=== PATIENT | female | born 1985 | race Caucasian/White ===

== ENCOUNTER 2016-07-02 21:48 | Inpatient (IN) ==
[2016-07-02] MEDS ORDERED: ONDANSETRON 4 MG/2 ML VIAL IV PRN (23:14)
[2016-07-02] MEDS: LACTATED RINGERS 1,000 ML IV SCH (23:25)
[2016-07-03 00:09] LABS: Basophils % 0.3 % (0.0-0.8); Eosinophils # 0.1 10*3/uL (0.0-0.87); Eosinophils % 0.9 % (0.00-10.9); Hematocrit 33.9 VOL% (35.7-47.0); Hemoglobin 11.4 GM/DL (12.0-16.0); Immature Granulocytes % 0.4 %; Immature Granulocytes Absolute 0.03 #; Lymphocytes # 2.5 10*3/uL (1.4-4.0); Lymphocytes % 31.9 % (21.3-54.2); Mean Corpuscular HGB Conc 33.6 GM/DL (32-36); Mean Corpuscular Hemoglobin 29 PG (27-34); Mean Corpuscular Volume 85.4 FL (87-102); Mean Platelet Volume 10.7 FL (9.6-12.0); Monocytes # 0.6 10*3/uL (0.11-0.8); Monocytes % 7.4 % (1.7-12.7); Neutrophils # 4.6 10*3/uL (1.4-7.4); Neutrophils % 59.1 % (38.7-73.9); Platelet Count 266 T/CUMM (130-400); Red Blood Count 3.97 MC/CUMM (3.8-5.5); Red Cell Distribution Width 13.6 % (9.3-17.3); White Blood Count 7.8 T/CUMM (4-12)
[2016-07-03] MEDS: LACTATED RINGERS 1,000 ML IV SCH (02:56)
[2016-07-03] MEDS ORDERED: OXYTOCIN/LR 20 UNIT/1,000 ML BAG IV SCH (06:00)
[2016-07-03] MEDS ORDERED: ePHEDrine 50 MG/ML AMP IV PRN (07:14)
[2016-07-03] MEDS ORDERED: CITRIC ACID/SODIUM CITRATE 30 ML UDCUP PO ONE (07:14)
[2016-07-03] MEDS ORDERED: LACTATED RINGERS 1,000 ML IV ONE (07:14)
[2016-07-03] MEDS ORDERED: FAMOTIDINE 20 MG/2 ML VIAL IV ONE (07:14)
[2016-07-03] MEDS ORDERED: fentaNYL 2 MCG/ROPIV 0.2% EPID 150 ML EPIDURAL SCH (07:15)
[2016-07-03] MEDS ORDERED: hydrOXYzine HCL 25 MG/1 ML VIAL IM PRN (07:15)
[2016-07-03] MEDS ORDERED: PROMETHAZINE 25 MG/1 ML VIAL IM ONE (07:15)
[2016-07-03] MEDS ORDERED: diphenhydrAMINE 50 MG/1 ML VIAL IV PRN ×2 (07:15)
[2016-07-03] MEDS ORDERED: ePHEDrine 50 MG/ML AMP ONE (07:28)
[2016-07-03 09:47] LABS: Apearance,Urine CLEAR (Clear); Bilirubin,Urine Negative (Negative); Blood, Urine Negative (Negative); Glucose,Urine (UA) Negative (Negative); Ketones,Urine Negative (Negative); Nitrite,Urine Negative (Negative); Protein,Urine Negative; RBC,Urine <1 /HPF (0-4); Squamous Epithelial Cell,Urine Occasional /HPF (0-10); Urine Color Straw (Yellow); Urine Specific Gravity 1.003 (1.001-1.035); Urine Urobilinogen < 2.0 EU/DL (0.2-1.0); WBC,Urine <1 /HPF (0-6)
--- NOTE | 2016-07-03 09:53 | OB/GYN History & Physical ---
History of Present Illness Chief complaint: In for complaints of labor History of present illness: Ms. Robles is a 31 year old female who is a 4 para 1 living 1 AMANDA 2016 for an estimated gestational age of 38 weeks and 3 days. The patient presented to the labor department with complaints of painful regular uterine contractions. The risk and benefits were thoroughly discussed with this patient and significant other, plan of care was discussed with Dr. Wallace and all parties are not plan. The patient received her care at the [facility] and she received routine care, her course was uneventful. The patient had a previous vaginal delivery of a liveborn that weighed 6 pounds and 11 ounces and she reported no complications with . labs: She is a negative she did receive evy antonio RhoGam, RPR is nonreactive, hepatitis B is negative, HIV is negative, rubella is immune , GBS culture is negative, review of systems is negative. Home Medications Medication Instructions Recorded Confirmed Type Pnv No.95/Ferrous Fum/Folic AC 1 each PO DAILY 05/26/14 07/03/16 History [ Tablet] Ferrous Sulfate Tab [Feosol 325 mg PO BID #60 tablet 08/11/15 07/03/16 Rx Original Tab] Allergies Allergy/AdvReac Type Severity Reaction Status Date / Time azithromycin Allergy RASH Verified 05/26/14 10:25 [From Zithromax Z-Morro] sulfamethoxazole Allergy RASH Verified 05/26/14 10:25 [From Bactrim] trimethoprim [From Bactrim] Allergy RASH Verified 05/26/14 10:25 sevela Allergy RASH Uncoded 05/26/14 10:26 12 point system: reviewed and no additional remarkable complaints except as stated Medical,Surgical,& Family Hx - Medical History Medical History: noncontributory Neurology: No history of: Seizures HEENT: History of: Eye Problem Genitourinary: History of: Bladder Problem (LEAKAGE) Musculoskeletal: History of: Musculoskeletal Problems (surgery on finger) Hematology: No history of: Blood Transfusion Reaction Reproductive: History of: Complication (MISSED TWICE) No history of: Ectopic Other: History of: Skin Problems (BENIGN MOLE REMOVED WHEN 10 YEARS OLD) No history of: Anesthesia Reactions, MRSA - Surgical History HEENT Surgeries: Surgical HX of: Eye Surgery (LASIK) Reproductive Surgeries: Surgical HX of;: Dilation and Curettage (x2), Genitourinary Surgery (BLADDER SLING 2006) Patient denies;: Section - Family History Family History: Reports;: Family Diabetes (DAD) - Social History Smoking Status: Never smoker Frequency of Alcohol Use: None Type of Drug Use: None Marital Status: Lives With:: Spouse Functional capacity: independent ambulation 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 - Constitutional Vitals: Vital Signs Temp 07/03/16 03:56 96.8 F L 07/03/16 00:00 97.6 F General appearance: mild distress - Antepartum / Post Antepartum Exam Cervix -Dilatation: 6 cm Effacement: 80% Station: -1 Rupture: Intact Presentation: Vertex Heart Rate: 130s-140s Breast: bilateral: normal Abdomen obstetrics: Present: bowel sounds normal Vagina: Present: normal moisture Uterus exam: Present: enlarged Anus/Rectum: Present: normal perianal skin - Head Head exam: Present: normocephalic - Respiratory Respiratory exam: Present: clear to auscultation bilaterally - Cardiovascular Cardiovascular exam: Present: regular rate and rhythm - GI/Abdominal GI/Abdominal exam: Present: normal bowel sounds, soft - Extremities Exam Extremities exam: Present: normal inspection - Back Exam Back exam: Present: normal inspection - Neurological Exam Neurological exam: Present: alert, oriented X3 - Psychiatric Psychiatric exam: Present: normal affect, normal mood - Skin Skin exam: Present: normal color, warm Assessment and Plan (1) Active labor at term Status: Acute Assessment and plan: Admit IV fluids IV Pitocin per protocol Artificial rupture membranes Epidural anesthesia if desired Anticipate Current Visit: Yes Results - Labs CBC & BMP: 07/02/16 23:25
[2016-07-03] MEDS ORDERED: LIDOCAINE 1% 50 ML VIAL ONE (10:58)
[2016-07-03] MEDS ORDERED: miSOPROStol 200 MCG TABLET ONE (10:58)
--- NOTE | 2016-07-03 11:30 | Event Note ---
HPI: Ms. Marquez is a 31-year-old female presents to the labor department in active labor. The risks and benefits were thoroughly discussed with the patient and significant other, and plan of care was discussed with Dr. Wallace and all parties were in agreement with plan. Stage I: The patient was admitted she received IV fluids and IV Pitocin per protocol. Artificial rupture membranes was performed with clear fluid noted. Epidural anesthesia was obtained for pain control. The patient progressed to labor with a CAT 1 tracing. She had an uneventful course of labor. Stage II: The patient was complete complain of pressure and desire to push. She pushed for approximately 15 minutes after which time the 's head was delivered. The mouth and nose were suctioned on the perineum. The remainder the was delivered at 1109 a viable male infant was noted. The was placed on the mom's abdomen for skin to skin bonding. Apgars were 8 at 1 minute and 9 at 5 minutes. weight was 7 pounds and 8 ounces. A cord pH was obtained and sent to the lab. Stage III: A spontaneous delivery of a Langford placenta with a three-vessel cord noted. The placenta was further examined and appear to be grossly intact. The vagina cervix inspected with second degree perineal laceration noted. The laceration was repaired in the usual fashion, epidural anesthesia remain in effect on repair. Estimated blood loss was approximately 150 cc. At the time of dictation mother and baby are both in stable condition.
[2016-07-03] MEDS ORDERED: HYDROCORTISONE 2.5% RECTAL CREAM 30 GM TUBE TOP PRN (11:31)
[2016-07-03] MEDS ORDERED: IBUPROFEN 800 MG TABLET PO PRN (11:31)
[2016-07-03] MEDS ORDERED: MEASLES/MUMPS/RUBELLA VACCINE 0.5 ML VIAL SUBCUT ONE (11:31)
[2016-07-03] MEDS ORDERED: WITCH HAZEL PADS 100/JAR TOP PRN (11:31)
[2016-07-03] MEDS ORDERED: oxyCODONE/ACETAMINOPHEN 5-325 MG TABLET PO PRN ×2 (11:31)
[2016-07-03] MEDS ORDERED: OXYTOCIN/LR 20 UNIT/1,000 ML BAG IV ONE (11:31)
[2016-07-03] MEDS ORDERED: ACETAMINOPHEN 325 MG TABLET PO PRN (11:31)
[2016-07-03] MEDS ORDERED: BENZOCAINE 20%/MENTHOL 0.5% SPRAY 56 GM CAN TOP PRN (11:31)
[2016-07-03] MEDS ORDERED: DIPH/TET/ACEL PERT BOOSTER VACCINE 0.5 ML VIAL IM ONE (11:31)
[2016-07-03] MEDS ORDERED: RHO(D) IMMUNE GLOBULIN 300 MCG SYRINGE IM ONE (11:31)
[2016-07-03] MEDS ORDERED: LANOLIN 50% CREAM 0.3 OZ TUBE TOP PRN (11:31)
[2016-07-03] MEDS ORDERED: BISACODYL 10 MG SUPP RECTAL PRN (11:31)
[2016-07-03] MEDS ORDERED: ACETAMINOPHEN/CODEINE 300-30 MG TABLET PO PRN (11:32)
[2016-07-03 11:38] LABS: Cord Venous Blood HCO3 22.8 MMOL/L; Cord Venous Blood PCO2 42.4 MMHG; Cord Venous Blood PO2 38.4
--- NOTE | 2016-07-03 15:37 | Anesthesia Post-Op ---
Anesthesia Post OP - Post Ansesthetic Evaluation Patient seen in post op: Yes Resp: within normal limits CV: within normal limits Mental: within normal limits Temp: within normal limits Quic-Am-Epypdgmez: within normal limits Nausea and Vomiting: within normal limits Pain: within normal limits
[2016-07-03] MEDS: DOCUSATE SODIUM 100 MG CAPSULE PO SCH (21:13)
[2016-07-04] MEDS: LACTATED RINGERS 1,000 ML IV SCH (00:16)
[2016-07-04 05:56] LABS: Basophils % 0.1 % (0.0-0.8); Eosinophils # 0.1 10*3/uL (0.0-0.87); Eosinophils % 1.3 % (0.00-10.9); Hematocrit 32.4 VOL% (35.7-47.0); Hemoglobin 10.4 GM/DL (12.0-16.0); Immature Granulocytes % 0.6 %; Immature Granulocytes Absolute 0.05 #; Lymphocytes # 2.1 10*3/uL (1.4-4.0); Lymphocytes % 23.2 % (21.3-54.2); Mean Corpuscular HGB Conc 32.1 GM/DL (32-36); Mean Corpuscular Hemoglobin 28 PG (27-34); Mean Corpuscular Volume 87.6 FL (87-102); Mean Platelet Volume 10.6 FL (9.6-12.0); Monocytes # 0.7 10*3/uL (0.11-0.8); Monocytes % 7.8 % (1.7-12.7); Platelet Count 222 T/CUMM (130-400); Red Cell Distribution Width 13.9 % (9.3-17.3)
--- NOTE | 2016-07-04 08:52 | Progress Note ---
Family Medicine PN Sub Interval history: Postop day #1 Status post vaginal Subjectively, without shortness of breath, no chest pain, no palpitation, no excessive vaginal bleeding Uterus is firm and nontender Extremities well with no limits neurologic grossly intact Status post vaginal Possible discharge in a.m. Exam (Progress Note) - Constitutional Vitals: Period Temp Pulse Resp BP Sys/Jason Pulse Ox Last 24 Hr 97.1 F-97.5 F 76-90 18-20 98-130/55-90 99-100 Results - Labs CBC & BMP: 07/04/16 05:39 Quality Measures - VTE Contraindication to Pharmacological VTE Prophylaxis: Clinical assessment deems Pt at low risk, no prophalaxis needed
[2016-07-04] MEDS: DOCUSATE SODIUM 100 MG CAPSULE PO SCH ×2 (09:40→21:00)
[2016-07-04] MEDS ORDERED: RHO(D) IMMUNE GLOBULIN 300 MCG SYRINGE IM ONE (16:25)
[2016-07-05] MEDS: DOCUSATE SODIUM 100 MG CAPSULE PO SCH (08:30)
[2016-07-05 12:10] VITALS: BP 127/76
--- NOTE | 2016-07-05 12:10 | Discharge Summary ---
Hospital Course - Hospital Course Hospital Course: Ms. Robles is a 31-year-old female who presented to the labor department in active labor. She subsequently delivered a viable with no complications. She has followed a normal course and she has done well. Her bleeding is minimal with no odor. Her vital signs and lab values are stable. She is bonding well with her . She has had a normal bowel movement. Her perineum is intact with no edema. The patient will be discharged home with prescriptions for pain and a follow-up appointment in our office. Diagnosis - Discharge Diagnosis (1) Active labor at term Status: Acute Specialty Discharge - Follow Up or Referrals Follow up with: Carlee Wallace MD [Physician] - 08/07/16 10:45 am Discharge Plan - Discharge Data Disposition: Disch To Home/Self Care Condition at Discharge: Stable Discharge Diet: regular diet Activity: resume usual activities as tolerated Hygiene: may shower Weight Bearing at Discharge: weight bear as tolerated Driving: no restrictions Contact your physician if you experience:: fever over 101, pain uncontrolled by pain medications - Discharge Medications New Ibuprofen Tab [Motrin Tab] 800 mg PO Q6H PRN #30 tablet PRN Reason: Pain Moderate (4-7) Acetamin/Codeine 300-30 Tab [Tylenol/Codeine #3] 2 tablet PO Q4H PRN #30 tablet PRN Reason: Pain Mild (1-3) No Action Pnv No.95/Ferrous Fum/Folic AC [ Tablet] 1 each PO DAILY Ferrous Sulfate Tab [Feosol Original Tab] 325 mg PO BID #60 tablet - Follow Up or Referral Follow Up: Carlee Wallace MD [Physician] - 08/07/16 10:45 am - Forms/Instructions Instructions: Perineal Care (DC), Vaginal Delivery (DC), Bleeding (DC) Exam - Constitutional Vitals: Period Temp Pulse Resp BP Sys/Jason Pulse Ox Last 24 Hr 97.2 F-98.0 F 70-96 19-20 110-138/67-79 96-98 General appearance: no acute distress - Head Head exam: Present: normal inspection - ENT ENT exam: Present: normal exam - Respiratory Respiratory exam: Present: clear to auscultation bilaterally - Cardiovascular Cardiovascular exam: Present: regular rate and rhythm - GI/Abdominal GI/Abdominal exam: Present: normal bowel sounds, soft - Extremities Exam Extremities exam: Present: normal inspection - Neurological Exam Neurological exam: Present: alert, oriented X3 - Psychiatric Psychiatric exam: Present: normal affect, normal mood - Skin Skin exam: Present: normal color, warm DS: Provider Date of admission: 07/02/16 21:48 Primary care physician: . No PCP Attending physician on admission: Carlee Wallace MD Consults: 07/02/16 23:14 Consult to Anesthesiology [CONS] Routine Consulting Provider: Reason for Anesthesiology: Epidural Consult Comment: Epidural for pain managment 07/03/16 11:31 Consult to Pleater Hand [CONS] Routine Consult Pleater Hand: Breast Feeding Discharging clinician: Aminata Ramos CNM Expected date of discharge: 07/05/16
== END 2016-07-05 13:25 | disposition home or self-care (01) | DRG 775 ==
LOC: N.LD 21:48 → N.LDOUT 21:48 → EDSTATUS 21:48 → N.LD 21:50 → N.OB 07-03 13:12
PROVIDERS: ADMIT Obstetrics & Gynecology; ATTEND Obstetrics & Gynecology

== ENCOUNTER 2018-07-15 06:06 | Inpatient (IN) ==
[2018-07-15] MEDS ORDERED: ONDANSETRON 4 MG/2 ML VIAL IV PRN (06:12)
[2018-07-15] MEDS ORDERED: MEPERIDINE 50 MG/1 ML VIAL IV PRN (06:12)
[2018-07-15] MEDS ORDERED: LACTATED RINGERS 1,000 ML IV SCH (06:30)
[2018-07-15] MEDS ORDERED: OXYTOCIN/LR 20 UNIT/1,000 ML BAG IV SCH (06:30)
[2018-07-15 06:40] LABS: Basophils % 0.1 % (0.0-0.8); Eosinophils # 0.1 10*3/uL (0.0-0.87); Eosinophils % 1.6 % (0.00-10.9); Hematocrit 39.1 VOL% (35.7-47.0); Hemoglobin 12.5 GM/DL (12.0-16.0); Immature Granulocytes % 0.9 %; Immature Granulocytes Absolute 0.07 #; Lymphocytes # 2.4 10*3/uL (1.4-4.0); Lymphocytes % 29.7 % (21.3-54.2); Mean Corpuscular Volume 88.9 FL (87-102); Mean Platelet Volume 9.2 FL (9.6-12.0); Monocytes % 7.4 % (1.7-12.7); Neutrophils % 60.3 % (38.7-73.9); Platelet Count 348 T/CUMM (130-400); Red Cell Distribution Width 13.8 % (9.3-17.3); White Blood Count 8.1 T/CUMM (4-12)
[2018-07-15 06:48] LABS: Alanine Aminotransferase 22 U/L (13-56); Alkaline Phosphatase 240 U/L (45-117); Aspartate Amino Transferase 12 U/L (0-37); Bilirubin,Total < 0.39 MG/DL (0.2-1.0); Blood Urea Nitrogen 10 MG/DL (7-18); Calcium 8.9 MG/DL (8.5-10.1); Glucose 89 MG/DL (74-106); Osmolality,Calculated 272.7 MOS/KG (273-304); Total Protein 7.4 G/DL (6.4-8.3)
[2018-07-15] MEDS ORDERED: diphenhydrAMINE 50 MG/1 ML VIAL IV PRN ×2 (09:55)
[2018-07-15] MEDS ORDERED: NALOXONE 0.4 MG/ML VIAL IV PRN (09:55)
[2018-07-15] MEDS ORDERED: ePHEDrine 50 MG/ML AMP IV PRN (09:55)
[2018-07-15] MEDS ORDERED: CITRIC ACID/SODIUM CITRATE 30 ML UDCUP PO ONE (09:59)
[2018-07-15] MEDS ORDERED: FAMOTIDINE 20 MG/2 ML VIAL IV ONE (09:59)
[2018-07-15] MEDS ORDERED: LACTATED RINGERS 1,000 ML IV ONE (09:59)
[2018-07-15] MEDS ORDERED: fentaNYL 2 MCG/ROPIV 0.2% EPID 100 ML EPIDURAL SCH (10:00)
[2018-07-15] MEDS ORDERED: miSOPROStol 200 MCG TABLET ONE (13:20)
[2018-07-15] MEDS ORDERED: METHYLERGONOVINE 0.2 MG/1 ML AMP ONE (13:20)
[2018-07-15 13:50] LABS: Apearance,Urine CLEAR (Clear); Bilirubin,Urine Negative (Negative); Blood, Urine Negative (Negative); Glucose,Urine (UA) Negative (Negative); Hyaline Casts,Urine 1 /LPF (0-3); Ketones,Urine Negative (Negative); Mucus,Urine Occasional /LPF (Occasional); Nitrite,Urine Negative (Negative); Protein,Urine Negative; RBC,Urine <1 /HPF (0-4); Squamous Epithelial Cell,Urine Occasional /HPF (0-10); Urine Color Yellow (Yellow); Urine Specific Gravity 1.016 (1.001-1.035); Urine Urobilinogen < 2.0 EU/DL (0.2-1.0); WBC,Urine 1 /HPF (0-6)
[2018-07-15] MEDS ORDERED: HYDROCORTISONE 2.5% RECTAL CREAM 30 GM TUBE TOP PRN (16:40)
[2018-07-15] MEDS ORDERED: IBUPROFEN 800 MG TABLET PO PRN (16:40)
[2018-07-15] MEDS ORDERED: WITCH HAZEL PADS 100/JAR TOP PRN (16:40)
[2018-07-15] MEDS ORDERED: ACETAMINOPHEN/CODEINE 300-30 MG TABLET PO PRN (16:40)
[2018-07-15] MEDS ORDERED: oxyCODONE/ACETAMINOPHEN 5-325 MG TABLET PO PRN ×2 (16:40)
[2018-07-15] MEDS ORDERED: ACETAMINOPHEN 325 MG TABLET PO PRN (16:40)
[2018-07-15] MEDS ORDERED: BENZOCAINE 20%/MENTHOL 0.5% SPRAY 56 GM CAN TOP PRN (16:40)
[2018-07-15] MEDS ORDERED: LANOLIN 50% CREAM 0.3 OZ TUBE TOP PRN (16:40)
[2018-07-15] MEDS ORDERED: BISACODYL 10 MG SUPP RECTAL PRN (16:40)
[2018-07-15] MEDS ORDERED: OXYTOCIN/LR 20 UNIT/1,000 ML BAG IV ONE (16:45)
[2018-07-15] MEDS ORDERED: RHO(D) IMMUNE GLOBULIN 300 MCG SYRINGE IM ONE (17:00)
[2018-07-15] MEDS ORDERED: MEASLES/MUMPS/RUBELLA VACCINE 0.5 ML VIAL SUBCUT ONE (17:00)
[2018-07-15] MEDS ORDERED: DIPH/TET/ACEL PERT BOOSTER VACCINE 0.5 ML VIAL IM ONE (17:00)
[2018-07-15] MEDS: DOCUSATE SODIUM 100 MG CAPSULE PO SCH (21:08)
[2018-07-16 07:24] LABS: Basophils % 0.2 % (0.0-0.8); Eosinophils # 0.1 10*3/uL (0.0-0.87); Eosinophils % 0.9 % (0.00-10.9); Hematocrit 33.7 VOL% (35.7-47.0); Hemoglobin 10.8 GM/DL (12.0-16.0); Immature Granulocytes % 0.7 %; Immature Granulocytes Absolute 0.07 #; Lymphocytes % 19.7 % (21.3-54.2); Mean Corpuscular Volume 90.6 FL (87-102); Mean Platelet Volume 9.4 FL (9.6-12.0); Monocytes % 6.2 % (1.7-12.7); Neutrophils % 72.3 % (38.7-73.9); Platelet Count 274 T/CUMM (130-400); Red Blood Count 3.72 MC/CUMM (3.8-5.5)
[2018-07-16] MEDS: DOCUSATE SODIUM 100 MG CAPSULE PO SCH ×2 (09:38→21:25)
[2018-07-17 07:30] VITALS: BP 116/63
[2018-07-17] MEDS: DOCUSATE SODIUM 100 MG CAPSULE PO SCH (08:20)
[2018-07-17] MEDS ORDERED: DIPH/TET/ACEL PERT BOOSTER VACCINE 0.5 ML VIAL IM ONE (10:54)
== END 2018-07-17 12:15 | disposition home or self-care (01) | DRG 807 ==
LOC: N.LD 06:06 → N.OB 16:53
PROVIDERS: ADMIT Obstetrics & Gynecology; ATTEND Obstetrics & Gynecology

== ENCOUNTER 2020-02-02 06:12 | Inpatient (IN) ==
[2020-02-02] MEDS ORDERED: ONDANSETRON 4 MG/2 ML VIAL IV PRN (06:21)
[2020-02-02] MEDS ORDERED: LACTATED RINGERS 1,000 ML IV SCH (06:30)
[2020-02-02] MEDS ORDERED: OXYTOCIN/LR 20 UNIT/1,000 ML BAG IV SCH (06:30)
[2020-02-02 07:19] LABS: Basophils % 0.4 % (0.0-0.8); Eosinophils % 0.6 % (0.00-10.9); Hematocrit 34.3 VOL% (35.7-47.0); Hemoglobin 11.8 GM/DL (12.0-16.0); Immature Granulocytes % 0.4 %; Immature Granulocytes Absolute 0.02 #; Lymphocytes # 1.9 10*3/uL (1.4-4.0); Mean Corpuscular HGB Conc 34.4 GM/DL (32-36); Mean Corpuscular Volume 85.1 FL (87-102); Monocytes % 9.4 % (1.7-12.7); Neutrophils % 52.2 % (38.7-73.9); Platelet Count 255 T/CUMM (130-400); Red Blood Count 4.03 MC/CUMM (3.8-5.5); Red Cell Distribution Width 12.6 % (9.3-17.3); White Blood Count 5.1 T/CUMM (4-12)
[2020-02-02 07:44] LABS: Atypical Lymphocytes Few; Band Neutrophils 2 % (0-10); Hypochromasia 1+; Lymphocytes 37 % (20-55); Segmented Neutrophils 57 % (50-85); Total Cells Counted 100
[2020-02-02 07:45] LABS: Microcytosis 1+; Platelet Estimate Normal
[2020-02-02] MEDS ORDERED: diphenhydrAMINE 50 MG/1 ML VIAL IV PRN ×2 (08:08)
[2020-02-02] MEDS ORDERED: CITRIC ACID/SODIUM CITRATE 30 ML UDCUP PO ONE (08:08)
[2020-02-02] MEDS ORDERED: hydrOXYzine HCL 25 MG/1 ML VIAL IM PRN (08:08)
[2020-02-02] MEDS ORDERED: NALOXONE 0.4 MG/ML VIAL IV PRN (08:08)
[2020-02-02] MEDS ORDERED: FAMOTIDINE 20 MG/2 ML VIAL IV ONE (08:08)
[2020-02-02] MEDS ORDERED: PROMETHAZINE 25 MG/1 ML VIAL IM PRN (08:08)
[2020-02-02] MEDS ORDERED: ePHEDrine 50 MG/ML VIAL IV PRN (08:08)
[2020-02-02] MEDS ORDERED: fentaNYL 2 MCG/ROPIV 0.2% EPID 100 ML EPIDURAL SCH (08:30)
[2020-02-02] MEDS ORDERED: METHYLERGONOVINE 0.2 MG/1 ML AMP ONE (09:44)
[2020-02-02] MEDS ORDERED: TRANEXAMIC ACID 1,000 MG/10 ML VIAL ONE (09:44)
[2020-02-02] MEDS ORDERED: miSOPROStoL 200 MCG TABLET ONE (09:44)
[2020-02-02] MEDS ORDERED: CARBOPROST TROMETHAMINE 250 MCG/ML AMP IM ONE (09:44)
[2020-02-02] MEDS ORDERED: MEPERIDINE 50 MG/1 ML VIAL ONE (09:47)
[2020-02-02] MEDS ORDERED: MEPERIDINE 50 MG/1 ML VIAL IV ONE (10:22)
[2020-02-02 11:02] LABS: Cord Venous Blood HCO3 22.9 MMOL/L; Cord Venous Blood PCO2 37.4 MMHG; Cord Venous Blood PO2 38.5 MMHG
[2020-02-02] MEDS ORDERED: ACETAMINOPHEN 325 MG TABLET PO PRN (14:03)
[2020-02-02] MEDS ORDERED: DIPH/TET/ACEL PERT BOOSTER VACCINE 0.5 ML VIAL IM ONE (14:03)
[2020-02-02] MEDS ORDERED: IBUPROFEN 800 MG TABLET PO PRN (14:03)
[2020-02-02] MEDS ORDERED: HYDROCORTISONE 2.5% RECTAL CREAM 30 GM TUBE TOP PRN (14:03)
[2020-02-02] MEDS ORDERED: OXYTOCIN/LR 20 UNIT/1,000 ML BAG IV ONE (14:03)
[2020-02-02] MEDS ORDERED: LANOLIN 50% CREAM 0.3 OZ TUBE TOP PRN (14:03)
[2020-02-02] MEDS ORDERED: MEASLES/MUMPS/RUBELLA VACCINE 0.5 ML VIAL SUBCUT ONE (14:03)
[2020-02-02] MEDS ORDERED: BENZOCAINE 20%/MENTHOL 0.5% SPRAY 56 GM CAN TOP PRN (14:03)
[2020-02-02] MEDS ORDERED: RHO(D) IMMUNE GLOBULIN 300 MCG SYRINGE IM ONE (14:03)
[2020-02-02] MEDS ORDERED: BISACODYL 10 MG SUPP RECTAL PRN (14:03)
[2020-02-02] MEDS ORDERED: WITCH HAZEL PADS 100/JAR TOP PRN (14:03)
[2020-02-02] MEDS ORDERED: oxyCODONE/ACETAMINOPHEN 5-325 MG TABLET PO PRN ×2 (14:03)
[2020-02-02] MEDS: DOCUSATE SODIUM 100 MG CAPSULE PO SCH (22:11)
[2020-02-03 05:55] LABS: Basophils % 0.3 % (0.0-0.8); Eosinophils # 0.1 10*3/uL (0.0-0.87); Hematocrit 29.9 VOL% (35.7-47.0); Hemoglobin 9.9 GM/DL (12.0-16.0); Immature Granulocytes % 0.3 %; Immature Granulocytes Absolute 0.02 #; Lymphocytes # 2.7 10*3/uL (1.4-4.0); Mean Corpuscular HGB Conc 33.1 GM/DL (32-36); Mean Corpuscular Volume 86.9 FL (87-102); Mean Platelet Volume 10.8 FL (9.6-12.0); Monocytes % 7.5 % (1.7-12.7); Neutrophils % 51.9 % (38.7-73.9); Platelet Count 221 T/CUMM (130-400); Red Blood Count 3.44 MC/CUMM (3.8-5.5); Red Cell Distribution Width 12.9 % (9.3-17.3); White Blood Count 6.8 T/CUMM (4-12)
[2020-02-03 06:18] LABS: Hypochromasia 1+; Lymphocytes 34 % (20-55); Microcytosis 1+; Platelet Estimate Adequate; Segmented Neutrophils 59 % (50-85); Total Cells Counted 100
[2020-02-03 06:19] LABS: Atypical Lymphocytes Few
[2020-02-03] MEDS: DOCUSATE SODIUM 100 MG CAPSULE PO SCH ×2 (09:03→20:19)
[2020-02-03] MEDS: FERROUS SULFATE 325 MG TABLET PO SCH (09:04)
[2020-02-03] MEDS ORDERED: RHO(D) IMMUNE GLOBULIN 300 MCG SYRINGE IM ONE (17:07)
[2020-02-04 07:17] VITALS: BP 113/62
[2020-02-04] MEDS: FERROUS SULFATE 325 MG TABLET PO SCH (08:43)
[2020-02-04] MEDS: DOCUSATE SODIUM 100 MG CAPSULE PO SCH (08:43)
[2020-02-04] MEDS ORDERED: DIPH/TET/ACEL PERT BOOSTER VACCINE 0.5 ML VIAL IM ONE (10:53)
== END 2020-02-04 11:58 | disposition home or self-care (01) | DRG 807 ==
LOC: N.LDOUT 06:12 → N.LD 06:13 → N.OB 13:52
PROVIDERS: ADMIT Obstetrics & Gynecology; ATTEND Obstetrics & Gynecology